=== PATIENT | male | born 1960 | race Caucasian/White ===

== ENCOUNTER 2017-02-10 14:44 | Emergency (ER) | payer OTHER ==
[2017-02-10 14:56] VITALS: O2SAT 99
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
--- NOTE | 2017-02-10 16:25 | RAD ---
PROCEDURE: Radiographs of the left elbow. HISTORY: swelling trauma COMPARISON: No prior. FINDINGS: BONES: No evidence of acute fracture or dislocation. Well defined ossicles seen at the posterior aspect of the elbow JOINTS: Normal. No osteoarthritis. SOFT TISSUES: Normal. JOINT EFFUSION: None. OTHER FINDINGS: None IMPRESSION: No evidence of acute fracture dislocation or significant joint effusion. Ossicles seen posterior to the left elbow.
[2017-02-10 17:02] VITALS: BP 118/79; PULSE 96; RESP 18; TEMP 97.8
== END 2017-02-10 17:04 | disposition home or self-care (01) ==
LOC: C.ER 14:44
DX: S50.02XA Contusion of left elbow, initial encounter (principal); W22.09XA Striking against other stationary object, initial encounter; Y93.89 Activity, other specified; Y92.238 Other place in hospital as the place of occurrence of the external cause

== ENCOUNTER 2018-06-27 08:59 | Emergency (ER) | payer OTHER ==
[2018-06-27 09:16] VITALS: RESP 16; TEMP 97.5
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
[2018-06-27 10:28] VITALS: BP 135/82; PULSE 78
[2018-06-27 11:21] VITALS: O2SAT 98
== END 2018-06-27 10:27 | disposition home or self-care (01) ==
LOC: C.ER 08:59
DX: S16.1XXA Strain of muscle, fascia and tendon at neck level, initial encounter (principal); S33.9XXA Sprain of unspecified parts of lumbar spine and pelvis, initial encounter; V49.40XA Driver injured in collision with unspecified motor vehicles in traffic accident, initial encounter; Y92.89 Other specified places as the place of occurrence of the external cause; Y99.0 Civilian activity done for income or pay
CPT/HCPCS: 96372; 99284; J1885